=== PATIENT | female | born 1990 | race Caucasian/White ===

== ENCOUNTER 2016-12-31 05:52 | Inpatient (IN) ==
[2016-12-31] MEDS ORDERED: CARBOPROST 250 MCG/ML INJECTION IM PRN (06:05)
[2016-12-31] MEDS ORDERED: OXYTOCIN DRIP 30 UNIT/500 ML ML IV PRN (06:05)
[2016-12-31] MEDS ORDERED: D5LR 1,000 ML IV PRN (06:05)
[2016-12-31] MEDS ORDERED: MAG-AL + SIM ORAL LIQUID 30ml PO PRN ×2 (06:05→13:56)
[2016-12-31] MEDS ORDERED: METHYLERGONOVINE 0.2 MG/ML INJECTION IM PRN (06:05)
[2016-12-31] MEDS ORDERED: LIDOCAINE 1% (10mg/ml) 2mL INJ PF SDV ID PRN (06:05)
[2016-12-31] MEDS ORDERED: ACETAMINOPHEN 500 MG TABLET PO PRN ×2 (06:05→13:56)
[2016-12-31] MEDS ORDERED: CALCIUM CARBONATE Chewable 500mg TABLET PO PRN ×2 (06:05→13:56)
[2016-12-31] MEDS: LR 1,000 ML IV SCH ×2 (06:34→12:42)
[2016-12-31 07:38] VITALS: RESP 16; BMI 30.9
--- NOTE | 2016-12-31 09:24 | Anesthesia Preoperative Report ---
Anesthesia Epidural/Spinal Rec - Date and Time Date: 12/31/16 Preoperative Diagnosis: induction Procedure: Labor Epidural Plan: Epidural - Vital Signs Vital Signs: Temperature 97.9 F 12/31/16 07:34 Pulse Rate 70 12/31/16 07:34 Respiratory Rate 16 12/31/16 07:34 Blood Pressure 123/75 12/31/16 07:34 Pulse Oximetry 99 12/31/16 07:34 Oxygen Delivery Method Room Air /Para: P:2 - Medictaions & Allergies Inpatient Medications: Current Medications Acetaminophen (Tylenol) 500 - 1,000 mg PO Q4H PRN PRN Reason: Pain Al Hydroxide/Mg Hydroxide (Maalox Plus) 30 ml PO Q3H PRN PRN Reason: Indigestion Calcium Carbonate (Tums) 500 - 1,000 mg PO Q2H PRN PRN Reason: Indigestion Carboprost Tromethamine (Hemabate) 250 mcg IM O PRN PRN Reason: .Downtime Dextrose/Lactated Ringer's (Dextrose 5%-Lactated Ringers) 1,000 mls @ 125 mls/ hr IV .Q8H PRN PRN Reason: Labor Last Admin: 12/31/16 06:25 Dose: 125 mls/hr Oxytocin (Pitocin Drip) 30 unit in 500 mls @ 2 mls/hr IV .Q24H PRN; Protocol PRN Reason: Induction/Augmentation Last Admin: 12/31/16 06:26 Dose: 2 mls/hr Lactated Ringer's (Lactated Ringers) 1,000 mls @ 0 mls/hr IV .Q0M JADA PRN Reason: Per Protocol Last Admin: 12/31/16 06:34 Dose: 999 mls/hr Lidocaine HCl (Xylocaine-Mpf 1% Vial) 0.2 mg ID O PRN PRN Reason: IV Start Methylergonovine Maleate (Methergine) 0.2 mg IM O PRN Misoprostol (Cytotec) 800 mcg [place] ONCE PRN Allergies/Adverse Reactions: Allergies Allergy/AdvReac Type Severity Reaction Status Date / Time No Known Drug Allergies Allergy Unknown Verified 12/04/16 15:17 - Home Medications Home Medications: Home Medications Medication Instructions Recorded Confirmed Type Vits W-Ca,Fe,Fa(<1MG) 1 tab PO DAILY #0 12/30/09 12/31/16 History () Metoclopramide HCl [Reglan] 10 mg PO Q6H PRN 12/31/16 12/31/16 History Pantoprazole Tab [Protonix] 1 mg PO DAILY 12/31/16 12/31/16 History - Medical History Respiratory: Reports: Asthma - Surgical History Anesthesia Reactions: None Hx Family Anesthesia Reaction: No History of Motion Sickness: No - Social History Second Hand Exposure: No Substance Use Type: does not use Alcohol Intake Frequency: does not drink - Pertinent Findings Lab Data: CBC and BMP 12/31/16 06:19 EKG Rhythm: Normal Sinus Rhythm - Physical Exam Respiratory Exam: lungs clear Cardiovascular Exam: regular rate and rhythm, no murmur - Airway Assessment Mallampati Score: II TMD: 3 Fingerbreadths Neck Extension: good Overall Assessment: no airway concerns - ASA ASA Score: 2 - Discussion Discussion: Discussed risks/options/alternatives of anesthesia and questions answered. Patient consents. Nursing pain assessment noted. Anesthesia Discussion: spouse Attestation Statement: Prior to the delivery of any anesthetic medication, I examined the patient, developed the plan, obtained the patient's consent and discussed the risk and benefits of the procedure with the patient/guardian.
[2016-12-31] MEDS ORDERED: ONDANSETRON 4 MG/2 ML INJECTION IVP PRN (11:44)
[2016-12-31] MEDS ORDERED: ROPIVACAINE 1% 10MG/ML INJ 200 MG, SUFentanil 50 MCG in NS 100 ML EPI PRN (11:44)
[2016-12-31] MEDS ORDERED: DiphenhydrAMINE 50 MG/ML INJECTION IVP PRN (11:44)
[2016-12-31] MEDS ORDERED: NALOXONE 0.4 MG/ML INJECTION IVP PRN (11:44)
[2016-12-31] MEDS ORDERED: DiphenhydrAMINE 25 MG CAPSULE PO PRN (13:56)
[2016-12-31] MEDS ORDERED: SALINE FLUSH 10ml SYRINGE IVF PRN (13:56)
[2016-12-31] MEDS ORDERED: BENZOCAINE 20% SPRAY 0.5 ML MM ONE (13:56)
[2016-12-31] MEDS ORDERED: HYDROCORTISONE 2.5% CREAM 30gm RECTALLY PRN (13:56)
[2016-12-31] MEDS: OXYTOCIN DRIP 30 UNIT/500 ML ML IV SCH (15:19)
[2016-12-31] MEDS: IBUPROFEN 800 MG TABLET PO PRN (16:05)
[2016-12-31] MEDS: HYDROCODONE/APAP 5mg/325mg TABLET PO PRN ×2 (18:02→21:56)
[2016-12-31 23:23] VITALS: TEMP 97.9
[2017-01-01] MEDS: DOCUSATE CALCIUM 240 MG CAPSULE PO SCH ×2 (06:22→10:59)
[2017-01-01] MEDS: HYDROCODONE/APAP 5mg/325mg TABLET PO PRN ×2 (06:23→14:15)
[2017-01-01] MEDS: IBUPROFEN 800 MG TABLET PO PRN ×2 (06:24→14:15)
--- NOTE | 2017-01-01 07:13 | Labor and Delivery Note ---
DATE OF DELIVERY: 12/31/2016 DIAGNOSES 1. 26-year-old white female, G3, P2, at 37.5 weeks gestational age. 2. Pitocin induction for a cholestasis . 3. Previous . 4. Epidural anesthesia. 5. Artificial rupture of membranes. 6. OP rotating to OA. 7. Nuchal cord x 1. 8. Spontaneous vaginal delivery. 9. Male infant, Apgars, 3528 g (Arielxtangelika Ely). BRIEF DESCRIPTION This is a patient of [facility] that was diagnosed two days ago with a cholestasis based on symptomatology. Bile acids were ordered but are still pending. Given that she is past 37 weeks, we went ahead and induced because of the dire possibilities for in an undelivered state. Pitocin reached a maximum of 28 milliunits a minute. She progressed in labor appropriately. She was OP at the time of complete dilation, but the baby spontaneously rotated to OA with pushing. There was a tight nuchal cord x 1 that was delivered through. Infant was bulb suctioned after delivery of the head and then again after delivery of the body. Cord was allowed to drain for about 2-1/2 minutes and then was doubly clamped and cut and the infant's father cut the cord. was initially placed on mother's abdomen. Placenta delivered spontaneously and was intact. Perineum was intact. Maternal blood type is A-negative. Rubella is immune and GBS was negative. At the time of dictation mother and are doing well. MTDD
[2017-01-01] MEDS ORDERED: RHO(D) IMMUNE GLOBULIN 300 MCG/2 ML INJECTION IVP ONE (08:00)
--- NOTE | 2017-01-01 08:34 | Pharmacy Consult ---
Pharmacy Consult-Rhophylac - Laboratory Information 12/31/16 12/31/16 12/31/16 06:19 13:56 14:51 Hgb /Adult Ratio 0.0022 Blood Type AB Negative RhIG Candidate? Is a candidate Rh FACTOR CONSULT: Kathe Mathews [id number] Mother Blood Type = AB neg Vikas Mathewsle [id number] Child Blood Type = A positive Hgb / Adult Ratio = 0.0022 Will give Rho D Immunglobulin 300mcg IV x 1 dose to Mom. Thank you, Danilo Jones, Pharmacist.
--- NOTE | 2017-01-01 08:47 | Anesthesia Postoperative Note ---
- Date and Time Date: 01/01/17 Time: 08:45 - Status Patient Participated in Evaluation: Patient Participated in Person Vital Signs: Temperature 97.9 F 01/01/17 05:30 Pulse Rate 78 01/01/17 05:30 Respiratory Rate 16 01/01/17 05:30 Blood Pressure 127/72 01/01/17 05:30 Pulse Oximetry 98 01/01/17 05:30 Oxygen Delivery Method Room Air Respiratory Function: Airway Patent, Regular Respirations Cardiovascular Function: Regular Pulse Mental Status: Alert and Oriented Hydration: Taking PO Fluids Complications During Recover: None Apparent Post Anesthesia Care Notes: patient stated epidural didn't work. Initially had set up but shortly after did not work. - Follow-Up Instructions Instructions: Per Surgeon
--- NOTE | 2017-01-01 09:40 | OB/GYN Progress Note ---
OB-Progress Note Free Text - Date Date: 01/01/17 - Progress Note Progress Note: vss af doing well, no c/o anticipate dc today f/u 5-6 wks q&a pt is [employer] so knows instructions
--- NOTE | 2017-01-01 09:51 | Discharge Instructions ---
Discharge Plan - Med Rec/Dispo Referrals/Follow Up: Roberth Vega MD [Physician] - 5-6 Weeks Prescriptions: New Hydrocodone/APAP 5/325 [Fulda 5/325] 1 - 2 tab PO Q4H PRN #20 tablet PRN Reason: Pain Ibuprofen [Motrin] 800 mg PO Q8H PRN #30 tablet PRN Reason: Pain Continue Vits W-Ca,Fe,Fa(<1MG) () 1 tab PO DAILY #0 Pantoprazole Tab [Protonix] 1 mg PO DAILY Metoclopramide HCl [Reglan] 10 mg PO Q6H PRN PRN Reason: Acid Reflux - Disposition 01 Discharged Home, Self-Care
[2017-01-01] MEDS: OXYTOCIN DRIP 30 UNIT/500 ML ML IV SCH (11:01)
[2017-01-01 16:00] VITALS: BP 118/57; PULSE 87; O2SAT 97
== END 2017-01-01 18:08 | disposition home or self-care (01) | DRG 775 ==
LOC: MC 05:52
PROVIDERS: ADMIT Obstetrics & Gynecology; ATTEND Obstetrics & Gynecology